=== PATIENT | male | born 1960 | race Caucasian/White ===

== ENCOUNTER 2024-11-05 08:12 | Observation (INO) ==
--- NOTE | 2024-10-18 11:16 | PAT Medication Instructions ---
Medication Instructions Date of Service October 18, 2024 Home Medications ascorbic acid (vitamin C) 100 mg tablet 100 mg PO QAM aspirin 81 mg tablet,delayed release 81 mg PO QAM atorvastatin 80 mg tablet 80 mg PO HS carvedilol 3.125 mg tablet 3.125 mg PO BID clopidogrel 75 mg tablet 75 mg PO QAM cyanocobalamin (vitamin B-12) 1,000 mcg capsule 1,000 mcg PO QAM hydrochlorothiazide 25 mg tablet 25 mg PO QAM metformin 500 mg tablet 500 mg PO QAM multivitamin 1 tab PO QAM tamsulosin 0.4 mg capsule 0.4 mg PO HS cholecalciferol (vitamin D3) 25 mcg (1,000 unit) capsule 25 mcg PO QAM coenzyme Q10 100 mg capsule (CoQ-10) 100 mg PO QAM irbesartan 300 mg-hydrochlorothiazide 25 mg tablet 1 tab PO QAM omega 4-nbi-ykm-fish oil 100 mg-160 mg-1,000 mg capsule (Fish Oil) 1 cap PO QAM resveratrol 100 mg capsule 120 mg PO QAM ascorbic acid (vitamin C) 1,000 mg tablet (Vitamin C) 1 g PO QAM dutasteride 0.5 mg capsule 0.5 mg PO QAM vit X-opsomov-hnvogyyah-rutin-[id number] 500 mg-50 mg-25 mg-40 mg tablet (Bioflex) 1 tab PO QAM vitamin E 1,000 unit tablet 1 tab PO QAM ASK your prescriber and surgeon aspirin 81 mg tablet,delayed release 81 mg PO QAM clopidogrel 75 mg tablet 75 mg PO QAM(in order for spinal or epidural anesthesia , Plavix/clopidogrel needs to be stopped 7 days before surgery. Please check if okay with doctor that prescribes this to you) STOP taking 2 weeks before surgery (or as soon as possible if surgery is within 2 weeks) coenzyme Q10 100 mg capsule (CoQ-10) 100 mg PO QAM omega 7-url-ngy-fish oil 100 mg-160 mg-1,000 mg capsule (Fish Oil) 1 cap PO QAM resveratrol 100 mg capsule 120 mg PO QAM vit Q-tnfztwg-abjpqslua-rutin-cqrw591 500 mg-50 mg-25 mg-40 mg tablet (Bioflex) 1 tab PO QAM vitamin E 1,000 unit tablet 1 tab PO QAM DO NOT take the morning of surgery ascorbic acid (vitamin C) 100 mg tablet 100 mg PO QAM cyanocobalamin (vitamin B-12) 1,000 mcg capsule 1,000 mcg PO QAM hydrochlorothiazide 25 mg tablet 25 mg PO QAM metformin 500 mg tablet 500 mg PO QAM multivitamin 1 tab PO QAM cholecalciferol (vitamin D3) 25 mcg (1,000 unit) capsule 25 mcg PO QAM irbesartan 300 mg-hydrochlorothiazide 25 mg tablet 1 tab PO QAM ascorbic acid (vitamin C) 1,000 mg tablet (Vitamin C) 1 g PO QAM Take morning of surgery With a small sip of water, OTHERWISE NOTHING TO EAT OR DRINK AFTER MIDNIGHT: carvedilol 3.125 mg tablet 3.125 mg PO BID dutasteride 0.5 mg capsule 0.5 mg PO QAM Take evening before surgery atorvastatin 80 mg tablet 80 mg PO HS carvedilol 3.125 mg tablet 3.125 mg PO BID tamsulosin 0.4 mg capsule 0.4 mg PO HS Other Notes If you have any questions please call us at [phone] or [phone] or [phone] or [phone]
--- NOTE | 2024-10-21 08:21 | Anesthesiology Consultation ---
Date of Service October 21, 2024 Assessment & Plan (1) Encounter for pre-operative examination: - Check BSG DOS - Infectious disease screening: Per assessment on 10/21/24- No known recent infectious disease contacts. Cold symptoms onset 10/20/24- current symptoms: occasional dry cough and congestion. Covid test done 10/21 ([facility]) was negative. Patient advised to contact surgeon/prescriber if symptoms not at baseline prior to DOS 11/05/24. As long as patient does not have Covid symptoms and feels back to baseline by DOS- pt can proceed as scheduled without additional preop Covid testing or additional Covid contact precautions protocol. - Outpatient joint assessment: Pt currently scheduled for inpatient pathway. If surgeon requests review for outpatient joint pathway, patient is not recommended candidate for outpatient joint program from anesthesia standpoint based on available information. - Plavix instructions: patient made aware that for neuraxial anesthesia, Plavix needs to be held 7 days prior to surgery. Patient voiced understanding/will check if okay with prescriber. - PCP visit (08/19/24): "the patients most recent diagnostic testing was reviewed with the patient and was acceptable. the hemoglobin A1C was 5.6 and his LCL was 36, very good considering his known stable coronary artery disease.. he is seriously considering a right total knee replacement.. Assessment and plan.. Coronary artery disease.. Hyperlipidemia.. Hypertension.. Osteoarthritis.. PSA, elevated.. Prediabetes.. Vitamin D deficiency.. all the above medical diagnoses were evaluated and are discussed with the patient. They are stable and doing as well as can be expected therefore that being the case the medical decision was made that for all the medical problems noted above the treatment regimens will be kept the same." Chart Review Chart Review: Acceptable Risk for Surgery (pending evlauation DOS) and Patient seen in Pre Admission Testing Teaching & Discussion Pre-Anesthesia Teaching/Discussion Notes: Instructed NPO after midnight before surgery,except medications with 15 cc of water. Medication instructions provided according to the PAT guidelines. History Surgery Operation Date: 11/05/24 10:40 Proposed Procedures p Right Total Knee Arthroplasty - Miguel Angel Ramos MD Height/Weight Height: 6 ft Weight: 103.5 kg Allergies Allergy/AdvReac Type Severity Reaction Status Date / Time No Known Allergies Allergy Verified 10/25/24 11:24 Medications Home Medications Medication Instructions Recorded Confirmed Last Taken aspirin 81 mg tablet,delayed 81 mg PO QAM 11/28/22 10/25/24 Unknown release atorvastatin 80 mg tablet 80 mg PO HS 11/28/22 10/25/24 Unknown carvedilol 3.125 mg tablet 3.125 mg PO BID 11/28/22 10/25/24 Unknown clopidogrel 75 mg tablet 75 mg PO QAM 11/28/22 10/25/24 Unknown cyanocobalamin (vitamin B-12) 1,000 mcg PO QAM 11/28/22 10/25/24 Unknown 1,000 mcg capsule metformin 500 mg tablet 500 mg PO QAM 11/28/22 10/25/24 Unknown multivitamin 1 tab PO QAM 11/28/22 10/25/24 Unknown tamsulosin 0.4 mg capsule 0.4 mg PO HS 11/28/22 10/25/24 Unknown cholecalciferol (vitamin D3) 25 25 mcg PO QAM 09/16/24 10/25/24 Unknown mcg (1,000 unit) capsule coenzyme Q10 100 mg capsule 100 mg PO QAM 09/16/24 10/25/24 Unknown (CoQ-10) irbesartan 300 1 tab PO QAM 09/16/24 10/25/24 Unknown mg-hydrochlorothiazide 25 mg tablet omega 1-gfk-nsn-fish oil 100 1 cap PO QAM 09/16/24 10/25/24 Unknown mg-160 mg-1,000 mg capsule (Fish Oil) resveratrol 100 mg capsule 120 mg PO QAM 09/16/24 10/25/24 Unknown ascorbic acid (vitamin C) 1,000 mg 1 g PO QAM 10/18/24 10/25/24 Unknown tablet (Vitamin C) vit 1 tab PO QAM 10/18/24 10/25/24 Unknown U-tegqgdf-pzpenootc-rutin-owum259 500 mg-50 mg-25 mg-40 mg tablet (Bioflex) vitamin E 1,000 unit tablet 1 tab PO QAM 10/18/24 10/25/24 Unknown dutasteride 0.5 mg capsule 0.5 mg PO QAM #90 caps 10/25/24 10/25/24 Unknown Past Medical History Medical History Arthritis BPH (benign prostatic hyperplasia) Degenerative arthritis of knee, bilateral History of myocardial infarction 2017- no stents, medically managed Hyperlipidemia Hypertension Prediabetes Exercise / Class Metabolic Activity II 4-5 Yardwork/Stairs/Walk up hill Past Family History Family History Other No family history of adverse response to anesthesia Past Surgical History Surgical History H/O hand surgery left little finger (+hardware removed) History of cardiac cath 2017- no stents ([facility]) History of colonoscopy History of esophagogastroduodenoscopy (EGD) Hx of LASIK Hx of prostate biopsy Past Anesthesia History No Hx of Anesthesia Complications and No Family Hx of Anesthesia Complications History of PONV No Hx of PONV and No Hx of Motion Sickness Social History Smoking Status: Never smoker Do You Dip or Chew Tobacco: No Hx Alcohol Use: Yes alcohol intake frequency: holidays/special occasions only substance use type: does not use Review of Systems Patient denies chest pain, shortness of breath, dyspnea on exertion, fever, chills, wheezing. Physical Exam Vital Signs BP 171/85 P 58 TEMP 98.5 SP02 95%RA RESP 16 Physical Full cervical extension range of motion. Full TMJ range of motion. TMD 3 finger breaths Mallampati Score III Dentition: intact Lungs: clear throughout to auscultation Cardiac: regular rate and rhythm, no murmurs noted Spine: normal Carotid arteries: negative bruit Extremities: no LE edema Lab Results Anesthesia Preop Results Results Anesthesia Widget: WBC 10.43 K/ul (4.8-10.8) 10/21/24 Hgb 14.4 g/dl (14.0-18.0) 10/21/24 Hct 41.3 % (42.0-52.0) L 10/21/24 Plt 223 K/uL (130-400) 10/21/24 Na 143 mmol/L (136-145) 10/21/24 K 3.6 mmol/L (3.5-5.1) 10/21/24 Cl 107 mmol/L (98-107) 10/21/24 CO2 31 mmol/L (21-32) 10/21/24 BUN 14 mg/dl (6-23) 10/21/24 Creat 1.00 mg/dl (0.6-1.4) 10/21/24 Glucose Level 109 mg/dl (70-99(Fasting)) H 10/21/24 PT 10.4 Seconds (9.0-12.0) 10/21/24 PTT 26 Seconds (21-31) 10/21/24 INR 1.0 (0.9-1.1) 10/21/24 HA1c 5.5 % (4.5-5.6) 10/21/24 SARS-CoV-2 RNA (RT-PCR) Negative (Negative) 10/21/24 Blood Type O Positive 10/21/24 Antibody Screen NEGATIVE 10/21/24 Testing Electrocardiogram Date: 10/21/24 SR with first degree AVB with PACs with aberrant conduction. 64bpm. NS ST/TWA. Possible inferior infarct. Patient reports good functional status at PAT visit from same day and denies cardiopulmonary limiting complaints. Chest X-Ray Date: 10/21/24 Findings: There are no confluent pulmonary infiltrates. The heart size is within normal limits. No pleural effusion or pneumothorax is seen. There is no definite pulmonary nodule. No fracture is noted. No foreign body is seen Impression: No active disease.
--- NOTE | 2024-10-28 13:37 | History & Physical Report ---
Date of Service October 28, 2024 Assessment & Plan (1) Degenerative arthritis of knee, bilateral: 64-year-old gentleman from [facility] with advanced bilateral knee DJD. He has failed conservative treatment. He like to proceed with right knee replacement. Plan: Shakila to take him to the operating room and do a right knee replacement but the risk and benefit this procedure were explained to the patient in depth. He understands. He knows he has to hold his Plavix 7 days preop. Will plan on using Plavix for DVT prophylaxis along with the thigh-high teds, SCDs. He is anne stay in the hospital overnight and hopeful discharge postoperative day 1. (2) Hypertension: (3) Hyperlipidemia: (4) History of myocardial infarction: (5) Prediabetes: (6) BPH (benign prostatic hyperplasia): History of Present Illness Chief Complaint: . Bilateral knee pain right side greater than left. Primary Care Provider: KAYE Kruse . Patient is a 64-year-old gentleman who presents now for surgical treatment of his right knee primarily. He is from [facility]. We have been following for severe knee arthritis for the past 2 years. The shots have become less effective particularly in the right knee. He is ready to consider surgery. He limps pretty much all the time. Limps more as the day goes on. Pain has become more disabling. Allergies Allergy/AdvReac Type Severity Reaction Status Date / Time No Known Allergies Allergy Verified 10/25/24 11:24 Home Medications Medication Instructions Recorded Confirmed Type aspirin 81 mg tablet,delayed 81 mg PO QAM 11/28/22 10/25/24 History release atorvastatin 80 mg tablet 80 mg PO HS 11/28/22 10/25/24 History carvedilol 3.125 mg tablet 3.125 mg PO BID 11/28/22 10/25/24 History clopidogrel 75 mg tablet 75 mg PO QAM 11/28/22 10/25/24 History cyanocobalamin (vitamin B-12) 1,000 mcg PO QAM 11/28/22 10/25/24 History 1,000 mcg capsule metformin 500 mg tablet 500 mg PO QAM 11/28/22 10/25/24 History multivitamin 1 tab PO QAM 11/28/22 10/25/24 History tamsulosin 0.4 mg capsule 0.4 mg PO HS 11/28/22 10/25/24 History cholecalciferol (vitamin D3) 25 25 mcg PO QAM 09/16/24 10/25/24 History mcg (1,000 unit) capsule coenzyme Q10 100 mg capsule 100 mg PO QAM 09/16/24 10/25/24 History (CoQ-10) irbesartan 300 1 tab PO QAM 09/16/24 10/25/24 History mg-hydrochlorothiazide 25 mg tablet omega 3-cfa-noc-fish oil 100 1 cap PO QAM 09/16/24 10/25/24 History mg-160 mg-1,000 mg capsule (Fish Oil) resveratrol 100 mg capsule 120 mg PO QAM 09/16/24 10/25/24 History ascorbic acid (vitamin C) 1,000 mg 1 g PO QAM 10/18/24 10/25/24 History tablet (Vitamin C) vit 1 tab PO QAM 10/18/24 10/25/24 History Z-zqiouyt-uhnsmssyv-rutin-pkpb425 500 mg-50 mg-25 mg-40 mg tablet (Bioflex) vitamin E 1,000 unit tablet 1 tab PO QAM 10/18/24 10/25/24 History dutasteride 0.5 mg capsule 0.5 mg PO QAM #90 caps 10/25/24 10/25/24 Rx Past Med/Surg History Problem List Encounter for pre-operative examination Elevated PSA Medical History Arthritis BPH (benign prostatic hyperplasia) Prediabetes History of myocardial infarction 2017- no stents, medically managed Hyperlipidemia Hypertension Degenerative arthritis of knee, bilateral Surgical History H/O hand surgery left little finger (+hardware removed) Hx of prostate biopsy History of esophagogastroduodenoscopy (EGD) History of colonoscopy Hx of LASIK History of cardiac cath 2017- no stents ([facility]) Family History Other No family history of adverse response to anesthesia Social History Smoking Status: Never smoker Second Hand Exposure: No; Do You Dip or Chew Tobacco: No; Hx Alcohol Use: Yes Preferred Language: Icelandic Guitar Repairer Required: No Beliefs That Will Affect Care: None Current Living Situation: Alone Feels Safe at Home: Yes Assistive Devices: Glasses Review of Systems All systems reviewed & are unremarkable except as noted in HPI & below. Physical Exam . Physical examination reveals a pleasant middle-age male. Family looks in pretty good health. Examination of the knees reveal patient ambulates with a waddling gait. Examination the right knee reveals varus alignment. Tender with medial joint line. Small knee effusion. He has a varus thrust with weightbearing. Range of motion is about 5-1 20. No instability. No particular pain with hip motion. Examination of the left knee reveals a similar varus deformity. Tender with medial joint line. Small knee effusion. Range of motion is 5-1 25. No instability. Constitutional WD/WN, vitals as above Respiratory normal respiratory effort, lungs clear to auscultation Cardiovascular RRR, no murmur, no edema Results & Data Results & Data Laboratory Results . Diagnostic Findings . X-rays of both knees reveal advanced bilateral knee DJD. Is got complete loss of medial joint space in both knees. Is got tibiofemoral subluxation. The right knee is a bit worse than the left. PG Care Time/CCT Total # of Minutes Spent Total Time Spent with Patient: Total time spent is greater than 50% in coordination of care (as documented) at patient's floor/unit and/or counseling patient: Coding Level of Care Code None Diagnoses Degenerative arthritis of knee, bilateral M17.0 Hypertension I10 Hyperlipidemia E78.5 History of myocardial infarction I25.2 Prediabetes R73.03 BPH (benign prostatic hyperplasia) N40.0
[~2024-11-05 08:12] MED LIST: BUPIVACAINE 0.5 % 5 MG/1 ML PF 10ML VIAL ONE; ROPIVACAINE 0.5% 5 MG/ML 30 ML VIAL ONE
--- NOTE | 2024-11-05 09:12 | History & Physical Bridge Note ---
Date of Service November 05, 2024 History & Physical Bridge Note I have examined the patient, reviewed the History & Physical and in the interval since the performance of the History & Physical I have noted the following changes of clinical significance: no changes noted
[2024-11-05] MEDS: CeleBREX 200 MG CAP PO SCH (09:20)
[2024-11-05] MEDS: ACETAMINOPHEN 500 MG TAB PO SCH ×2 (09:20→15:23)
[2024-11-05] MEDS: METOCLOPRAMIDE HCL 10 MG TABLET PO SCH (09:20)
[2024-11-05] MEDS: LR 60ML/HR IV SCH (09:21)
[2024-11-05] MEDS: FAMOTIDINE 20 MG TAB PO SCH (09:21)
[2024-11-05] MEDS: dexAMETHasone**PF** 10 MG/ML VIAL ONE (09:34)
[2024-11-05] MEDS: SODIUM CHLORIDE 0.9% 1,000 ML IV SCH (09:35)
[2024-11-05] MEDS ORDERED: fentaNYL citrate PF 100 MCG/2 ML VIAL ONE (09:35)
[2024-11-05] MEDS: DEXAMETHASONE SOD INJ 4 MG/ML VIAL IV ONE (09:35)
[2024-11-05] MEDS ORDERED: PROPOFOL IV EMULSION 10 MG/ML 100 ML VIAL IV ONE (09:35)
[2024-11-05] MEDS ORDERED: MIDAZOLAM HCL 1 MG/ML 2ML VIAL ONE (09:35)
[2024-11-05] MEDS: ceFAZolin 2000MG 2,000 MG/15 ML SYR IV SCH ×2 (11:40→19:33)
[2024-11-05] MEDS ORDERED: KETAMINE HCL 10MG/ML SYR ONE (11:57)
[2024-11-05] MEDS: ORTHO JOINT ANESTHETIC ONE (12:13)
[2024-11-05] MEDS: ROPIV 0.5% 246mg, Ketorolac 30mg, EPINEPHrine 0.5mg in NSS INFIL SCH (12:13)
[2024-11-05] MEDS: TRANEXAMIC ACID 1,000 MG **IV Intra-op IV SCH (12:30)
--- NOTE | 2024-11-05 13:23 | Operative Report ---
PG Post Operative Report Pre & Post Diagnosis Operation Date: 11/05/24 10:40 Pre-Op Diagnosis: Right Knee Degenerative Joint Disease Post-Op Diagnosis: Right Knee Degenerative Joint Disease I identified the patient and participated in the time-out.: Yes Procedure Operation Date: 11/05/24 10:40 Actual Procedures p Right Total Knee Arthroplasty(Right) - Miguel Angel Ramos MD Surgeon Miguel Angel Ramos MD Transition Rn Darron Vaz PA-C Estimated Blood Loss 50 Findings Consistent with Post-Op Diagnosis Operative findings were advanced right knee DJD. He extensive grade 4 kzla-ds-kxtr disease of the medial compartment with a varus deformity to his knee with a eburnation of the medial femoral condyle medial tibial plateau. Specimens Right knee sent for pathology. Anesthesia Type Spinal MAC Complications none Disposition Accompanied Patient To Recovery: No Indications Patient is a 64-year-old fairly active gentleman whose had a long history of bilateral knee pain discomfort described to gotten worse over time. Is been through extensive conservative treatment for the past several years which became less successful over time. The right knee was bothering more than the left. He elected proceed with right total knee arthroplasty. Description of Procedure Operative implants consist of: 1 Biomet Vanguard size 72.5 right posterior stabilized femoral component. 2. Biomet size 71 tibial tray. 3. 14 mm posterior stabilized polyethylene insert. 4. 31 x 8 all poly patella. The patient was taken to the op room, identified, placed on the operating table in the supine position. All contact areas were appropriately padded. IV antibiotics tried by anesthesia team. A spinal anesthetic and adductor canal block had been Weida in the holding area. Right thigh turn was then placed. The right lower extremity was then prepped and draped in the usual sterile fashion. The right leg was elevated and exsanguinated with use of an Esmarch and a turn was placed at 300 mmHg. An anterior approach to the right knee was then performed to longitudinal incision centered over the patella. Sharp dissection scalp through subcutaneous tissue down the extensor mechanism. A medial parapatellar arthrotomy incision was made. Some subperiosteal dissection was carried out medially. The fat pad was dissected from Neath patella tendon. The lateral patellofemoral ligament was released. Patella subluxated laterally and the knee was flexed. The osteophytes taken up to the distal femur. The ACL and PCL were then released from the distal femur and the tibia subluxate anteriorly. The external treatment LYMErix then placed in the anterior face the tibia and adjusted 14 mm medially. The proximal tibial cut was made remove about a millimeter or 2 of bone from most efficient aspect the medial tibial plateau. This did take a fairly large piece of bone laterally. The tibia was then sized to a size 71. Attention drawn the femur. The distal femur examined with a sharp drill. Intramedullary canal was suction. A right 6 degree valgus cutting guide was placed. The distal femoral cutting block was pinned in place. Distal femoral cut was made to take an additional 3 mm of bone off distal femur. The femur was then sized to a size 72.5. The AP cutting block was pinned parallel to the epicondylar axis which was 4 degrees of external rotation. The anterior cut, anterior chamfer, posterior cut, posterior chamfer cuts were made. The box cutting guide was placed and adjusted slightly lateral and the box cut was made. The knee was flexed. The remnants of the medial and lateral menisci were excised. The osteophytes taken off the posterior aspect the femur. A trial femoral component was placed. The tibial tray was pinned Ivette external rotation and the drill and stem punch were used to create defect in proximal tibia for the tibial component. The knee was then trialed and the 14 mm insert fit most appropriately. Attention drawn the pat gerald. The patella was cleaned of all soft tissue. But the patella thickness measured 23 mm in thickness and was cut down to 14. Was sized to a size 31 patella. The lug holes were drilled for 31 patella. The lateral osteophytes removed. Patella button was placed. Knee was taken through range of motion and the patella tracked nicely with no thumbs test. Attention was then drawn toward placement permanent components. Nupathe all trial components were removed. Bone plug was placed into this femur limit blood loss. Double batch Palacos G cement was mixed. A Biomet Vanguard size 72.5 right posterior stabilized femoral component, size 71 tibial tray, a 14 mm posterior Byce polyethylene insert, and a 31 x 8 all poly patella and then cemented in place. The knee was brought out into full extension till cement hardened. A final cement check was then performed. Pericapsular tissues were injected with total 100 cc of Ortho mix. The patient did receive 1 g tranexamic acid. The tourniquet was then let down for final tourniquet time of 58 minutes. Hemostasis assured use electrocautery. The extensor Metros then closed with combination 1 PDS suture and 1 Vicryl suture in a kshgny-kd-vwzkb fashion. The extensor mechanism was checked and found to be intact through the subcutaneous tissues then closed with 2 Dexon suture in buried interrupted fashion skin was closed skin liya. Leg was then cleaned and dried a sterile dressing was Xeroform, 4 fourths, sterile cast padding, Cristian bandage were applied. Patient then transferred to the recovery room in stable condition. Patient tolerated procedure well and there were no complications. Darron Vaz, my physician optometrist assistant, was present for the entire procedure. His assistance was essential and required for appropriate patient positioning, prepping and draping, surgical exposure, performing the technical details of the operation, placement the implants, closure of the wound, and placement of the sterile bandage. I attest to the content of the Intraoperative Record and any orders documented therein. Any exceptions are noted below.
--- NOTE | 2024-11-05 13:50 | XRay Report ---
XR knee RT 1 or 2V routine CLINICAL HISTORY: Postoperative evaluation. COMPARISON: Right knee radiographs September 16, 2024. FINDINGS: Alignment of the total right knee arthroplasty is anatomic. There is no periprosthetic fra cture or unexpected radiopaque foreign body. There are skin liya. IMPRESSION: Expected findings following total right knee arthroplasty. ACT 112: Negative or not required by law. Electronically signed by: Bruno Shen M.D. 11/05/2024 1:44 PM
[2024-11-05] MEDS: LR 500ML BOLUS, THEN 15ML/HR IV SCH (14:27)
--- NOTE | 2024-11-05 14:41 | Anesthesiology Progress Note ---
Date of Service November 05, 2024 Anesthesia Post Procedure Vital Signs Vital Signs: Temp Pulse Resp BP Pulse Ox O2 Del Method O2 Flow Rate 11/05/24 14:35 36.6 C 60 18 133/89 97 Room Air 0 11/05/24 14:30 52 L 14 132/93 96 Room Air 0 11/05/24 14:20 54 L 16 142/81 H 97 Room Air 0 11/05/24 14:10 51 L 13 129/84 96 Room Air 0 11/05/24 14:00 47 L 14 114/74 97 Room Air 0 11/05/24 13:50 54 L 14 125/79 100 Oxymask 4 11/05/24 13:40 51 L 14 115/70 100 Oxymask 4 11/05/24 13:30 58 L 13 113/76 100 Oxymask 8 11/05/24 13:20 36.2 C L 63 21 109/73 97 Oxymask 8 11/05/24 09:06 36.6 C 50 L 20 168/109 H 98 Room Air Pain Intensity Right Buttock: Pain Intensity: 0 Transfer of Care Handoff Completed per policy Notes Mental Status: alert / awake / arousable and participated in evaluation Nausea / Vomiting: adequately controlled Pain: adequately controlled Airway Patency, RR, SpO2: stable & adequate BP & HR: stable & adequate Hydration State: stable & adequate Anesthetic Complications: no major complications apparent and Pt Satisfied with anesthetic care
[2024-11-05] MEDS ORDERED: CARBOHYDRATES FOR HYPOGLYCEMIA PO PRN (14:46)
[2024-11-05] MEDS ORDERED: HYDROmorphone INJ 0.5 MG/0.5 ML SYR IV PRN (14:46)
[2024-11-05] MEDS ORDERED: METOCLOPRAMIDE HCL INJ 5 MG/ML 2 ML VIAL IV PRN (14:46)
[2024-11-05] MEDS ORDERED: GLUCAGON FOR INJ 1 MG VIAL SQ PRN (14:46)
[2024-11-05] MEDS ORDERED: ONDANSETRON INJ 2 MG/ML 2 ML VIAL IV PRN (14:46)
[2024-11-05] MEDS ORDERED: ALUMINUM/MAGNESIUM SUSP 30 ML UDC PO PRN (14:46)
[2024-11-05] MEDS ORDERED: DEXTROSE 50% 50 ML SYRINGE IV PRN (14:46)
[2024-11-05] MEDS ORDERED: oxyCODONE HCL IR 5 MG TAB (IMMEDIATE RELEASE) PO PRN (14:46)
[2024-11-05] MEDS ORDERED: bisacodyL 10 MG SUPP PR PRN (14:46)
[2024-11-05] MEDS ORDERED: GLUCOSE 10 TAB/TUBE PO PRN (14:46)
[2024-11-05] MEDS ORDERED: MAGNESIUM HYDROXIDE SUSP 30 ML UDC PO PRN (14:46)
[2024-11-05] MEDS ORDERED: GLUCOSE 40% GEL 15 GM TUBE PO PRN (14:46)
[2024-11-05] MEDS ORDERED: NALOXONE HCL 0.4 MG/1 ML VIAL/CARP IV PRN (14:46)
[2024-11-05] MEDS ORDERED: PHARMACY GLYCEMIC MGMT CONSULT PRN (14:46)
[2024-11-05] MEDS: KETOROLAC TROMETHAMINE 15 MG/ML VIAL IV SCH (15:24)
[2024-11-05] MEDS: ASCORBIC ACID 500 MG TAB PO SCH (17:31)
[2024-11-05] MEDS: INSULIN ASPART PER UNIT CHARGE SC SCH (17:39)
[2024-11-05] MEDS: TRANEXAMIC ACID / 0.7% NACL 1,000 MG/100 ML BAG IV SCH (19:39)
[2024-11-05] MEDS: carvediloL 3.125 MG TAB PO SCH (20:11)
[2024-11-05] MEDS: ATORVASTATIN 40 MG TAB PO SCH (20:11)
[2024-11-05] MEDS: TAMSULOSIN HCL 0.4 MG CAP PO SCH (20:11)
[2024-11-05] MEDS: DOCUSATE SODIUM 100 MG CAP PO SCH (20:11)
[2024-11-05] MEDS: SENNA 8.6 MG TAB PO SCH (20:11)
[2024-11-05] MEDS ORDERED: SENNA 8.6 MG TAB PO SCH (21:00)
[2024-11-06 06:44] LABS: Hematocrit (blood only) 32.4 % (42.0-52.0); Hemoglobin 11.4 g/dl (14.0-18.0); Mean Corpuscular Hemoglobin 31.8 pg (25.0-34.0); Mean Corpuscular Hgb Conc 35.2 g/dL (32.0-36.0); Mean Corpuscular Volume 90.3 fL (80.0-100.0); Mean Platelet Volume 9.1 fL (9.4-12.4); Platelet Count 225 K/uL (130-400); RDW Coefficient of Variation 12.4 % (11.5-14.5); RDW Standard Deviation 40.3 fL (36.4-46.3); Red Blood Count 3.59 M/uL (4.70-6.10); White Blood Count 15.13 K/ul (4.8-10.8)
[2024-11-06 07:12] LABS: BUN Creatinine Ratio 25.2 (10-20); Calcium 8.5 mg/dl (8.6-10.3); Creatinine Clr Calc Pharmacy 87.7 ml/min; Potassium 3.6 mmol/L (3.5-5.1)
[2024-11-06 07:46] VITALS: BP 135/86; PULSE 74; RESP 16; TEMP 97.5; O2SAT 94
--- NOTE | 2024-11-06 07:51 | Orthopedic Progress Note ---
Date of Service November 06, 2024 Assessment & Plan (1) Status post right knee replacement: Plan: 64-year-old gentleman postop day 1 from a right knee replacement doing pretty well. Really not have much pain. He is neurologically intact. Is got good quad function. Plan: 1. DVT prophylaxis including Thiede teds, SCDs, back on his Plavix. 2. PT/OT. Weight-bear as top. Right total knee protocol. 3. Pain control. Doing well with current pain regimen. 4. Disposition plan to discharge home with some home health later today. (2) BPH (benign prostatic hyperplasia): (3) Prediabetes: (4) History of myocardial infarction: (5) Hyperlipidemia: (6) Hypertension: Admission and Anticipated Discharge Date Admission Date: November 05, 2024 Subjective 64-year-old gentleman postop day 1 from a right knee replacement. He is doing well. Reports no particular pain this morning. No chest pain or shortness of breath. Had a reasonable night. Physical Exam Physical Exam: Physical examination was a pleasant middle-age male. He is lying bed looks comfortable. Examination of the right leg reveals a slight bit of bloody drainage on the front of his dressing. He can dorsiflex and plantarflex his foot appropriately. He is neurologically intact. Can do a good straight leg raise. Respiratory: normal respiratory effort, lungs clear to auscultation Cardiovascular: RRR, no murmur, no edema Gastrointestinal (Abdomen): normal bowel sounds, soft, nontender, no hepatosplenomegaly Results & Data Vital Signs (Past 12 Hours) Vital Signs Temp Pulse Resp BP Pulse Ox O2 Del Method 11/06/24 07:44 36.4 C L 74 16 135/86 94 Room Air 11/06/24 03:00 36 C L 66 14 151/95 H 93 Room Air 11/05/24 23:00 36.5 C 70 14 131/78 91 Room Air 11/05/24 21:48 Room Air Laboratory Results Hemoglobin is 11.4. Hematocrit is 32.4. Electrolytes are stable.
[2024-11-06] MEDS: dexAMETHasone 10 MG in SYRINGE 0 ML IV SCH (08:34)
[2024-11-06] MEDS: FINASTERIDE 5 MG TAB PO SCH (08:34)
[2024-11-06] MEDS: ASPIRIN 81 MG ECTAB PO SCH (08:35)
[2024-11-06] MEDS: MULTIVITAMIN TAB PO SCH (08:35)
[2024-11-06] MEDS: OMEGA-3 (PURIFIED FISH OIL) 1 GM CAP PO SCH (08:35)
[2024-11-06] MEDS: CHOLECALCIFEROL 25 MCG (1000 UNITS) TAB PO SCH (08:35)
[2024-11-06] MEDS: CYANOCOBALAMIN (B-12) 500 MCG TABLET PO SCH (08:35)
[2024-11-06] MEDS: TOCOPHERYL, DL-ALPHA 100 UNITS 45 MG CAP PO SCH (08:36)
[2024-11-06] MEDS ORDERED: HYDROCHLOROTHIAZIDE PO SCH (09:00)
[2024-11-06] MEDS ORDERED: NON-FORMULARY MEDICATION (Coenzyme Q10 [Coq-10] 100 mg capsule) PO SCH (09:00)
[2024-11-06] MEDS ORDERED: NON-FORMULARY MEDICATION (Multivitamin tablet) PO SCH (09:00)
[2024-11-06] MEDS ORDERED: NON-FORMULARY MEDICATION (Ascorbic Acid (Vitamin C) [Vitamin C] 1,000 mg Tablet) PO SCH (09:00)
[2024-11-06] MEDS ORDERED: NON-FORMULARY MEDICATION (Vit C-Bioflav-Hesp-Rutin-Hb196 [Bioflex] 500-50-25-40 mg Tablet) PO SCH (09:00)
[2024-11-06] MEDS ORDERED: IRBESARTAN PO SCH (09:00)
[2024-11-06] MEDS: LOSARTAN/HCTZ 50/12.5MG TAB PO SCH (09:35)
[2024-11-06] MEDS ORDERED: CLOPIDOGREL BISULFATE 75 MG TAB PO SCH (14:00)
--- NOTE | 2024-11-09 06:37 | Discharge Summary ---
Date of Service November 09, 2024 Admission HPI (Per Admitting) . Patient is a 64-year-old gentleman who presents now for surgical treatment of his right knee primarily. He is from [facility]. We have been following for severe knee arthritis for the past 2 years. The shots have become less effective particularly in the right knee. He is ready to consider surgery. He limps pretty much all the time. Limps more as the day goes on. Pain has become more disabling. Admission Exam (Per Admitting) . Physical examination reveals a pleasant middle-age male. Family looks in pretty good health. Examination of the knees reveal patient ambulates with a waddling gait. Examination the right knee reveals varus alignment. Tender with medial joint line. Small knee effusion. He has a varus thrust with weightbearing. Range of motion is about 5-1 20. No instability. No particular pain with hip motion. Examination of the left knee reveals a similar varus deformity. Tender with medial joint line. Small knee effusion. Range of motion is 5-1 25. No instability. Principal Diagnosis Same as "Discharge Diagnosis" noted below under Discharge Instructions. Discharge Data Procedures Performed Operation Date: 11/05/24 10:40 Actual Procedures p Right Total Knee Arthroplasty(Right) - Miguel Angel Ramos MD Ordered Studies 11/05/24 05:00 US - OR guided needle placemen Routine Hospital Course (1) Status post right knee replacement: This is a 64 year old patient admitted on 11/05/24 and underwent total knee arthroplasty. He tolerated the procedure well and there were no complications. Transferred to the PACU post op and later to the orthopedic floor for further care. He was given ancef for antibiotic prophylaxis. He was also given MAICO stockings, SCDs, and plavix for DVT prophylaxis. Hemoglobin, hematocrit, and vital signs were monitored during his hospital stay and remained stable. Did not require any blood transfusions. There were no complications during his hospital stay. By post op day #1 the patient was tolerating a diabetic diet, pain was reasonably controlled with oral pain medicine, and he was participating in physical therapy. On post op day #1 the patient was discharged home and set up with home health care. He was given printed discharge instructions including prescriptions for extra strength tylenol, cefadroxil, zofran, oxycodone, and se nokot. Continue physical therapy, weight bearing as tolerated. Continue MAICO stockings. Follow up approximately 2 weeks post op or sooner if there are problems or concerns. Discharge Plan Discharge Items Patient Disposition: Home - Home Health Services Reason For Visit: Right Knee Osteoarthritis Discharge Diagnosis: Right Knee Replacement Activity: Per Instructions section Non-emergency contact: Primary Care Provider Call non-emergency contact if: you have any medication questions Follow-up/Referrals: Colby Harris CRNP [Primary Care Provider] - Diet: Carb Consistent or DM2 Addtl Attending Provider Instructions: ACTIVITY RECOMMENDATIONS: Diet: * You may resume previous diet. Physical Therapy: * You will go to physical therapy three times each week for four to six weeks after your surgery in order to regain your knee range of motion and to retrain your knee to work properly. * It is just as important to make sure you are getting your knee perfectly straight as it is to regain your knee bend. * Taking a pain pill an hour before therapy can help you have a more productive and comfortable therapy session. Home Exercise: * You were shown a series of exercises (heel props, heel slides, etc.) in the hospital. Do these exercises three to four times each day including the exercises you were shown in physical therapy. Walking: * Get up and walk several times each day. For the first four weeks, try not to stand or walk for more than one hour at a time. If you do stand or walk for more than one hour, you will not hurt anything, but your knee and leg will likely swell. * As you feel comfortable, you may change from the walker or crutches to a cane and then to independent walking. MEDICATIONS: New Medicine: * You will likely be taking one or more of these medications: 1. Oxycodone - A quick and shorter-acting pain medication. Take one to two tablets every six hours to lessen your pain. 2. Plavix - Thins your blood to lessen the chance of forming a blood clot. * The most common side effects of pain medicine and iron are nausea and constipation. If nausea or constipation is too much of a problem or if you have any questions about your new medicines or doses, call [facility] at . We will try to help you manage these issues. "VERY IMPORTANT TO READ AND REVIEW" Pain: * The immediate post-operative period after knee replacement surgery is often quite painful. * You are given a prescription for pain medicine. You should take it, as directed, when you need it, especially before physical therapy and before going to bed. Pain that interferes with sleep is very common and can last several months. * You will likely need pain medicine for the first four to six weeks. It will not stop all of the pain. The pain will lessen and as you feel better, you may change to milder pain medicine such as Tylenol. * The most common side effects of pain medicine are nausea and constipation, so don't take more than you need. SPECIAL CARE INSTRUCTIONS: TEDs/Elastic Stockings: * The white elastic stockings help limit swelling and prevent blood clots from forming in your legs. The more you wear them, the more they work. * Wear them for six weeks after knee replacement surgery and four weeks after partial knee replacement. Incision Site Care: * Remove dressing postoperative day 2 and then shower. Keep direct shower pressure off the incision site. * After showering, cover liya with dry gauze and change daily or more frequently if the dressing is getting saturated with drainage. * Use the MAICO stockings to hold dressing in place. DO NOT apply tape on the skin. * May completely stop using bandage if wound is dry and no drainage * Liya are removed between 2 and 3 weeks post-op. If your follow-up appointment is made before 2 weeks, please have your appointment re- scheduled. It is too early to remove the liya. Prevention of Infection: * Take antibiotics one hour before any dental cleaning, dental work, urological procedure, gastrointestinal procedure or any invasive surgery in order to prevent your new joint from getting infected. * You may get the antibiotics from the doctor performing the procedure or you may call our office at [phone] before and we will call in a prescription to the pharmacy of your choice. Things to Watch For: * Drainage from the incision site that occurs more than one week after your surgery. * Severely increased knee/leg pain or swelling. * Increased redness at the incision site. * Fever above 102 degrees Fahrenheit. * Unusual chest pain or shortness of breath. * Unusual pain or burning with urination. Call [facility] at [phone] with any of the above problems or if you have any questions about your medicines or recovery. FOLLOW UP VISIT: Make an appointment to see your doctor for approximately two weeks after surgery for a progress check and staple removal by calling the office at [phone]. Pending Studies at Discharge: No Stand-Alone Forms: [facility], Pain - Opioid Pain Management, Smoking Cessation Medications and DC Order Prescriptions: Continued oxycodone 5 mg tablet 5 - 10 mg PO Q6 PRN (Reason: pain) Qty: 40 0RF Rx Instructions: Take as needed for pain ondansetron 4 mg tablet,disintegrating 4 mg PO Q8 PRN (Reason: nausea) Qty: 20 1RF Rx Instructions: Take as needed for nausea cefadroxil 500 mg capsule 500 mg PO BID 7 Days Qty: 14 0RF Rx Instructions: Take 1 cap twice a day to prevent infection sennosides [Senokot] 8.6 mg tablet 8.6 mg PO BID 14 Days Qty: 28 0RF Rx Instructions: Take two times a day to prevent/treat constipation acetaminophen [Tylenol Extra Strength] 500 mg tablet 1,000 mg PO TID 30 Days Qty: 180 0RF Rx Instructions: Take 3 times per day to lessen pain. tamsulosin 0.4 mg capsule 0.4 mg PO HS metformin 500 mg tablet 500 mg PO QAM clopidogrel 75 mg tablet 75 mg PO QAM carvedilol 3.125 mg tablet 3.125 mg PO BID Rx Instructions: must administer with a meal/food atorvastatin 80 mg tablet 80 mg PO HS multivitamin Tablet 1 tab PO QAM cyanocobalamin (vitamin B-12) 1,000 mcg capsule 1,000 mcg PO QAM aspirin 81 mg tablet,delayed release (DR/EC) 81 mg PO QAM irbesartan-hydrochlorothiazide 300-25 mg tablet 1 tab PO QAM resveratrol 100 mg capsule 120 mg PO QAM Fish Oil 100-160-1,000 mg capsule 1 cap PO QAM cholecalciferol (vitamin D3) 25 mcg (1,000 unit) capsule 25 mcg PO QAM coenzyme Q10 [CoQ-10] 100 mg capsule 100 mg PO QAM dutasteride 0.5 mg capsule 0.5 mg PO QAM Qty: 90 3RF ascorbic acid (vitamin C) [Vitamin C] 1,000 mg Tablet 1 g PO QAM vitamin E 1,000 unit Tablet 1 tab PO QAM Bioflex 098-41-26-40 mg Tablet 1 tab PO QAM Krames/Other Patient Handouts: Knee Replacement Total Dc Admission Data Admit Date/Time: 11/05/24 13:18 Attending Provider: Miguel Angel Ramos Admit Provider: Miguel Angel Ramos Primary Care Provider: Colby Harris Other Providers: [facility],Home Health Other Interventions: Discharge Summary Assessment (RN) Last Done: 11/06/24 10:04
== END 2024-11-06 10:39 | disposition home health service (06) ==
LOC: ASU 08:12 → 3N 08:12